=== PATIENT | female | born 1960 | race Caucasian/White ===

== ENCOUNTER → 2017-03-29 | Outpatient (CLI) | payer OTHER, MEDICARE | LOC: RAD 04:01 | DX: Z12.31 Encounter for screening mammogram for malignant neoplasm of breast (principal) ==

== ENCOUNTER → 2019-04-14 | Outpatient (CLI) | payer OTHER, MEDICARE | LOC: RAD 03:50 | DX: Z12.31 Encounter for screening mammogram for malignant neoplasm of breast (principal) ==